=== PATIENT | male | born 1980 | race Caucasian/White ===

== ENCOUNTER 2021-01-01 09:46 | Emergency (ER) | payer BC, SELFPAY ==
--- NOTE | ~2021-01-01 | XR_ITS ---
EXAMINATION: XR CHEST CLINICAL INFORMATION: Chest tightness COMPARISON: 05/09/2020 TECHNIQUE: Frontal view of the chest was obtained. FINDINGS: No significant abnormality is noted involving the heart, lungs, mediastinum, bony thorax or soft tissues. XR/XR chest 1V IMPRESSION: No acute pulmonary disease. No significant change from prior study.
[2021-01-01 10:04] VITALS: BP 162/105; PULSE 80; RESP 16; TEMP 36.8; O2SAT 98
[2021-01-01 10:09] VITALS: BP 162/105; PULSE 80; RESP 16; TEMP 36.8; O2SAT 98; BMI 33.0
--- NOTE | 2021-01-01 10:09 | ECG_ITS ---
Test Reason : CHEST TIGHTNESS Blood Pressure : / mmHG Vent. Rate : 071 BPM Atrial Rate : 071 BPM P-R Int : 158 ms QRS Dur : 100 ms QT Int : 406 ms P-R-T Axes : 025 000 021 degrees QTc Int : 441 ms Normal sinus rhythm Normal ECG When compared with ECG of 30-OCT-2011 22:09, No significant change was found Referred By: Raman De La O Electronically Signed By:Eric Mireles
[2021-01-01 10:36] LABS: MANUAL DIFF FLAG NO
[2021-01-01 10:39] LABS: Basophils Percent Auto 0.5 % (0-2); Eosinophils Percent Auto 0.5 % (0-4); Hemoglobin 14.5 g/dl (14.0-18.0); Imm Gran Abs Auto 0.01 X10*3/uL (0.00-0.03); Imm Gran Pct Auto 0.3 % (0.0-0.4); Lymphocytes Percent Auto 26.9 % (20-40); Mean Corpuscular HGB Conc 35.4 g/dl (31.0-36.0); Mean Corpuscular Hemoglobin 29.4 pg (27.0-33.0); Mean Platelet Volume 10.8 fL (9.4-12.4); Monocytes Absolute Auto 0.3 X10*3/uL (0.1-1.2); Monocytes Percent Auto 8.1 % (2-11); Neutrophils Absolute Auto 2.4 X10*3/uL (2.0-8.3); Neutrophils Percent Auto 63.7 % (45-73); Platelet Count 226 X10*3/uL (160-400); Red Blood Count 4.94 X10*6/uL (4.60-5.80); Red Cell Distribution Width 12.1 % (11.0-16.0); White Blood Count 3.7 X10*3/uL (4.8-10.8)
[2021-01-01 10:51] LABS: INTERNATIONAL NORM RATIO 1.1 (0.9-1.1); Prothrombin Time 12.9 SEC (10.8-13.0)
[2021-01-01 10:54] LABS: Partial Thromboplastin Time 31.3 SEC (24.1-38.0)
[2021-01-01 10:56] LABS: D Dimer < 200 NG/ML
[2021-01-01 11:02] LABS: Alanine Aminotransferase 34 U/L (0-40); Albumin Level 4.2 g/dL (3.5-5.0); Alkaline Phosphatase 76 U/L (39-117); Anion Gap 9 (12-20); Aspartate Amino Transferase 21 U/L (5-37); Bilirubin Total 0.7 mg/dL (0.0-1.0); Blood Urea Nitrogen 12 mg/dL (9-16); Calcium 8.9 mg/dL (8.4-10.2); Carbon Dioxide 29 mmol/L (22-29); Chloride 106 mmol/L (96-108); Creatinine Clr Calc Pharmacy 145.4; Estimated Glomerular Filt Rate > 60; Glucose Random 98 mg/dL (60-115); Potassium 4.3 mmol/L (3.3-5.1); Sodium 140 mmol/L (135-145); Total Protein 7.1 g/dL (6.5-8.0)
[2021-01-01 11:08] LABS: Troponin-I High Sensitivity 6.2 ng/L (<3.5-35.0)
[2021-01-01 13:37] LABS: Troponin-I High Sensitivity 4.6 ng/L (<3.5-35.0)
--- NOTE | 2021-01-01 14:09 | ED_ITS ---
HPI - General Adult General Chief complaint: General Medical <Raman De La O NP - Last Filed: 01/01/21 14:46> Stated complaint: covid + <Raman De La O NP - Last Filed: 01/01/21 14:46> Time Seen by Provider: 01/01/21 10:08 <Raman De La O NP - Last Filed: 01/01/21 14:46> Source: patient <Raman De La O NP - Last Filed: 01/01/21 14:46> Mode of arrival: ambulatory <Raman De La O NP - Last Filed: 01/01/21 14:46> Limitations: no limitations <Raman De La O NP - Last Filed: 01/01/21 14:46> History of Present Illness HPI narrative: States for the past 6 days or so developed flu-like symptoms yesterday his work made him get a COVID-19 test for which she went to Urgent Care and tested positive for COVID-19 and overall he states he is starting to feel better compared to his previous 6 days but today he has slight chest tightness consistent with a feeling of unable take a full deep breath in. He denies any fever, no shortness of breath on exertion. <Raman De La O NP - Last Filed: 01/01/21 14:46> Onset (ago): day(s) <Raman De La O NP - Last Filed: 01/01/21 14:46> Relieving factors: none <Raman De La O NP - Last Filed: 01/01/21 14:46> Exacerbating factors: none <Raman De La O NP - Last Filed: 01/01/21 14:46> Associated symptoms: cough <Raman De La O NP - Last Filed: 01/01/21 14:46> Treatments prior to arrival: none <Raman De La O NP - Last Filed: 01/01/21 14:46> Related Data Home medications: Previous Rx's Medication Instructions Recorded albuterol sulfate 2 puff INHALATION Q4-6H PRN #6.7 g 01/01/21 azithromycin [Zithromax Z-Leland] 250 mg PO DAILY 5 Days #6 tab 01/01/21 benzonatate [Tessalon Perles] 100 mg PO BID PRN #10 cap 01/01/21 prednisone 10 mg tablet 10 mg PO DAILY 6 Days #12 tab 01/01/21 omeprazole 20 mg capsule,delayed 20 mg PO DAILY 30 Days #30 cap 01/06/21 release <Raman De La O NP - Last Filed: 01/01/21 14:46> Allergies/adverse reactions: Allergies Allergy/AdvReac Type Severity Reaction Status Date / Time No Known Allergies Allergy Verified 10/22/20 09:04 <Raman De La O NP - Last Filed: 01/01/21 14:46> Review of Systems Review of Systems: Constitutional: No Weight loss, No Fever, + Chills, No Night Sweats, No Fatigue, No Malaise ENT/Mouth: No Hearing loss, No Ear Pain, + Nasal Congestion, No Sinus Pain, No Hoarseness, No sore throat, No Swallowing Difficulty \Eyes: No Eye Pain, No Swelling, No Redness, No Foreign Body, No Discharge, No Vision Changes Cardiovascular: No SOB, No Dyspnea on Exertion, No Orthopnea, No Edema, No Palpitations Respiratory: + Cough, No Sputum, No Wheezing, No Smoke Exposure, No Dyspnea Gastrointestinal: No Nausea, No Vomiting, No Diarrhea, No Constipation, No abdominal Pain, No Hematochezia, No Melena Genitourinary: No Dysuria, No Urinary Frequency, No Hematuria, No Urinary Incontinence, No Urgency, No Flank Pain, No Urinary Flow Changes, No Hesitancy Musculoskeletal: No joint pain, No Myalgias, No Joint Swelling Skin: No Skin Lesions, No rash Neuro: No Weakness, No Numbness, No Paresthesias, No Loss of Consciousness, No Dizziness, No Headache Psych: No Social Issues Heme/Lymph: No Bruising, No Bleeding,No Lymphadenopathy Endocrine: No Polyuria, No Polydipsia, No Temperature Intolerance <Raman De La O NP - Last Filed: 01/01/21 14:46> Yes all other systems are reviewed and are negative <Raman De La O NP - Last Filed: 01/01/21 14:46> PMF Past Medical History Surgical History: Surgical History History of laparoscopic appendectomy <Raman De La O NP - Last Filed: 01/01/21 14:46> Family History Family History: Family History Father Diabetes Mother Breast cancer Maternal Grandmother No problems noted. Maternal Grandfather No problems noted. Paternal Grandmother Alzheimer's dementia, late onset Diabetes Paternal Grandfather No problems noted. <Raman De La O NP - Last Filed: 01/01/21 14:46> Social History Social History: Social History Alcohol intake: never Smoking Status: Never smoker Tobacco Type: Cigarette Advance Directives: No Advance Directives Information Provided: No <Raman De La O NP - Last Filed: 01/01/21 14:46> Physical Exam Vital Signs: Vital Signs: Last Vital Signs Temp 98.2 F 01/01/21 10:09 Pulse 80 01/01/21 10:09 Resp 16 01/01/21 10:09 BP 162/105 H 01/01/21 10:09 Pulse Ox 98 01/01/21 10:09 Body Mass Index 33.0 Reviewed <Raman De La O NP - Last Filed: 01/01/21 14:46> Vital Signs: Last Vital Signs Temp 98.2 F 01/01/21 10:09 Pulse 80 01/01/21 10:09 Resp 16 01/01/21 10:09 BP 162/105 H 01/01/21 10:09 Pulse Ox 98 01/01/21 10:09 Body Mass Index 33.0 <Mark Blackman MD - Last Filed: 01/07/21 06:53> Const: General: cooperative and healthy appearing; No acute distress or intoxicated appearing <Raman De La O NP - Last Filed: 01/01/21 14:46> Nutritional Appearance: average body habitus <Raman De La O NP - Last Filed: 01/01/21 14:46> Orientation/consciousness: patient oriented x3 <Raman De La O NP - Last Filed: 01/01/21 14:46> HENMT: Head: Yes normal to inspection <Raman De La O NP - Last Filed: 01/01/21 14:46> Ears: hearing grossly normal bilaterally <Raman De La O NP - Last Filed: 01/01/21 14:46> Eyes: General: appearance normal, both eyes and all related structures <Sergio De La O - Last Filed: 01/01/21 14:46> Visual Olm[place]: normal visual olmstead by confrontation <[facility] Jaylyn - Last Filed: 01/01/21 14:46> Neck: Neck: Yes normal visual inspection, No positive Brudzinski's sign, No positive Kernig's sign and No tender <[facility] De La O - Last Filed: 01/01/21 14:46> Thyroid: Thyroid normal [facility] - Last Filed: 01/01/21 14:46> Chest: Chest palpation & inspection: normal inspection of the chest <[facility] De La O - Last Filed: 01/01/21 14:46> Resp: Effort & Inspection: normal respiratory effort <[facility] De La O - Last Filed: 01/01/21 14:46> Auscultation: clear to auscultation bilaterally <[facility] De La O - Last Filed: 01/01/21 14:46> Cardio: Jugular venous distension: no JVD <[facility] De La O - Last Filed: 01/01/21 14:46> Rhythm: regular rhythm <[facility] De La O - Last Filed: 01/01/21 14:46> Heart sounds: S1 normal heart sound present and S2 normal heart sound present <[facility] De La O - Last Filed: 01/01/21 14:46> GI: Inspection: Yes normal to inspection <[facility] De La O - Last Filed: 01/01/21 14:46> Palpation (GI): Soft to palpation <[facility] - Last Filed: 01/01/21 14:46> Percussion: Yes normal to percussion <[facility] - Last Filed: 01/01/21 14:46> Auscultation: normal bowel sounds <[facility] - Last Filed: 01/01/21 14:46> : General: Yes no CVA tenderness <[facility] - Last Filed: 01/01/21 14:46> Back/Spine/Pelvis: Back: no CVA tenderness <[facility] - Last Filed: 01/01/21 14:46> Skin: General skin exam: no rashes or lesions noted <Raman De La O NP - Last Filed: 01/01/21 14:46> Neuro: General: patient oriented x3 <Raman De La O NP - Last Filed: 01/01/21 14:46> Extrem: General: Yes normal to inspection <Raman De La O NP - Last Filed: 01/01/21 14:46> Course Course Course Narrative: I have reviewed the chart <Mark Blackman MD - Last Filed: 01/07/21 06:53> Medical Decision Making MDM Narrative Medical decision making narrative: Positive COVID yesterday with flu-like symptoms for past 6 days 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 Workup were stable. Ambulatory steady with pulse ox 100% on room air. Will discharge home with supportive, return, follow-up instructions. Cdc/state guidelines provided. Verbalized understanding. Feel comfortable plan. Stable for discharge. <Raman De La O NP - Last Filed: 01/01/21 14:46> Lab Data Result diagrams: : 01/01/21 10:26 01/01/21 10:26 <Raman De La O NP - Last Filed: 01/01/21 14:46> Labs: Lab Results 01/01/21 01/01/21 01/01/21 Range/Units 10:26 10:26 10:26 WBC 3.7 L (4.8-10.8) X10*3/uL RBC 4.94 (4.60-5.80) X10*6/uL Hgb 14.5 (14.0-18.0) g/dl Hct 41.0 L (42-52) % MCV 83.0 (80-98) fL MCH 29.4 (27.0-33.0) pg MCHC 35.4 (31.0-36.0) g/dl RDW 12.1 (11.0-16.0) % Plt Count 226 (160-400) X10*3/uL MPV 10.8 (9.4-12.4) fL Immature Gran % (Auto) 0.3 (0.0-0.4) % Neut % (Auto) 63.7 (45-73) % Lymph % (Auto) 26.9 (20-40) % [place] % (Auto) 8.1 (2-11) % Eos % (Auto) 0.5 (0-4) % Baso % (Auto) 0.5 (0-2) % Lymph # (Auto) 1.0 L (1.2-4.9) X10*3/uL [place] # (Auto) 0.3 (0.1-1.2) X10*3/uL Eos # (Auto) 0.0 (0.0-0.4) X10*3/uL Baso # (Auto) 0.0 (0.0-0.2) X10*3/uL Abs Immat Gran (auto) 0.01 (0.00-0.03) X10*3/uL Absolute Neuts (auto) 2.4 (2.0-8.3) X10*3/uL Absolute Nucleated RBC 0.000 (0.0-0.012) X10*3/uL Nucleated RBC % (auto) 0.0 (0.0-0.2) /100WBC PT 12.9 (10.8-13.0) SEC INR 1.1 (0.9-1.1) APTT 31.3 (24.1-38.0) SEC D-Dimer < 200 NG/ML Sodium 140 (135-145) mmol/L Potassium 4.3 (3.3-5.1) mmol/L Chloride 106 (96-108) mmol/L Carbon Dioxide 29 (22-29) mmol/L Anion Gap 9 L (12-20) BUN 12 (9-16) mg/dL Creatinine 0.90 (0.5-1.4) mg/dL Estim Creat Clear Calc 145.4 Estimated GFR > 60 Random Glucose 98 (60-115) mg/dL Calcium 8.9 (8.4-10.2) mg/dL Total Bilirubin 0.7 (0.0-1.0) mg/dL AST 21 (5-37) U/L ALT 34 (0-40) U/L Alkaline Phosphatase 76 (39-117) U/L Troponin I High Sens (<3.5-35.0) ng/L Total Protein 7.1 (6.5-8.0) g/dL Albumin 4.2 (3.5-5.0) g/dL 01/01/21 01/01/21 Range/Units 10:26 13:01 WBC (4.8-10.8) X10*3/uL RBC (4.60-5.80) X10*6/uL Hgb (14.0-18.0) g/dl Hct (42-52) % MCV (80-98) fL MCH (27.0-33.0) pg MCHC (31.0-36.0) g/dl RDW (11.0-16.0) % Plt Count (160-400) X10*3/uL MPV (9.4-12.4) fL Immature Gran % (Auto) (0.0-0.4) % Neut % (Auto) (45-73) % Lymph % (Auto) (20-40) % [place] % (Auto) (2-11) % Eos % (Auto) (0-4) % Baso % (Auto) (0-2) % Lymph # (Auto) (1.2-4.9) X10*3/uL [place] # (Auto) (0.1-1.2) X10*3/uL Eos # (Auto) (0.0-0.4) X10*3/uL Baso # (Auto) (0.0-0.2) X10*3/uL Abs Immat Gran (auto) (0.00-0.03) X10*3/uL Absolute Neuts (auto) (2.0-8.3) X10*3/uL Absolute Nucleated RBC (0.0-0.012) X10*3/uL Nucleated RBC % (auto) (0.0-0.2) /100WBC PT (10.8-13.0) SEC INR (0.9-1.1) APTT (24.1-38.0) SEC D-Dimer NG/ML Sodium (135-145) mmol/L Potassium (3.3-5.1) mmol/L Chloride (96-108) mmol/L Carbon Dioxide (22-29) mmol/L Anion Gap (12-20) BUN (9-16) mg/dL Creatinine (0.5-1.4) mg/dL Estim Creat Clear Calc Estimated GFR Random Glucose (60-115) mg/dL Calcium (8.4-10.2) mg/dL Total Bilirubin (0.0-1.0) mg/dL AST (5-37) U/L ALT (0-40) U/L Alkaline Phosphatase (39-117) U/L Troponin I High Sens 6.2 4.6 (<3.5-35.0) ng/L Total Protein (6.5-8.0) g/dL Albumin (3.5-5.0) g/dL <Raman De La O NP - Last Filed: 01/01/21 14:46> Lab Results 01/01/21 01/01/21 01/01/21 Range/Units 10:26 10:26 10:26 WBC 3.7 L (4.8-10.8) X10*3/uL RBC 4.94 (4.60-5.80) X10*6/uL Hgb 14.5 (14.0-18.0) g/dl Hct 41.0 L (42-52) % MCV 83.0 (80-98) fL MCH 29.4 (27.0-33.0) pg MCHC 35.4 (31.0-36.0) g/dl RDW 12.1 (11.0-16.0) % Plt Count 226 (160-400) X10*3/uL MPV 10.8 (9.4-12.4) fL Immature Gran % (Auto) 0.3 (0.0-0.4) % Neut % (Auto) 63.7 (45-73) % Lymph % (Auto) 26.9 (20-40) % [place] % (Auto) 8.1 (2-11) % Eos % (Auto) 0.5 (0-4) % Baso % (Auto) 0.5 (0-2) % Lymph # (Auto) 1.0 L (1.2-4.9) X10*3/uL [place] # (Auto) 0.3 (0.1-1.2) X10*3/uL Eos # (Auto) 0.0 (0.0-0.4) X10*3/uL Baso # (Auto) 0.0 (0.0-0.2) X10*3/uL Abs Immat Gran (auto) 0.01 (0.00-0.03) X10*3/uL Absolute Neuts (auto) 2.4 (2.0-8.3) X10*3/uL Absolute Nucleated RBC 0.000 (0.0-0.012) X10*3/uL Nucleated RBC % (auto) 0.0 (0.0-0.2) /100WBC PT 12.9 (10.8-13.0) SEC INR 1.1 (0.9-1.1) APTT 31.3 (24.1-38.0) SEC D-Dimer < 200 NG/ML Sodium 140 (135-145) mmol/L Potassium 4.3 (3.3-5.1) mmol/L Chloride 106 (96-108) mmol/L Carbon Dioxide 29 (22-29) mmol/L Anion Gap 9 L (12-20) BUN 12 (9-16) mg/dL Creatinine 0.90 (0.5-1.4) mg/dL Estim Creat Clear Calc 145.4 Estimated GFR > 60 Random Glucose 98 (60-115) mg/dL Calcium 8.9 (8.4-10.2) mg/dL Total Bilirubin 0.7 (0.0-1.0) mg/dL AST 21 (5-37) U/L ALT 34 (0-40) U/L Alkaline Phosphatase 76 (39-117) U/L Troponin I High Sens (<3.5-35.0) ng/L Total Protein 7.1 (6.5-8.0) g/dL Albumin 4.2 (3.5-5.0) g/dL 01/01/21 01/01/21 Range/Units 10:26 13:01 WBC (4.8-10.8) X10*3/uL RBC (4.60-5.80) X10*6/uL Hgb (14.0-18.0) g/dl Hct (42-52) % MCV (80-98) fL MCH (27.0-33.0) pg MCHC (31.0-36.0) g/dl RDW (11.0-16.0) % Plt Count (160-400) X10*3/uL MPV (9.4-12.4) fL Immature Gran % (Auto) (0.0-0.4) % Neut % (Auto) (45-73) % Lymph % (Auto) (20-40) % [place] % (Auto) (2-11) % Eos % (Auto) (0-4) % Baso % (Auto) (0-2) % Lymph # (Auto) (1.2-4.9) X10*3/uL [place] # (Auto) (0.1-1.2) X10*3/uL Eos # (Auto) (0.0-0.4) X10*3/uL Baso # (Auto) (0.0-0.2) X10*3/uL Abs Immat Gran (auto) (0.00-0.03) X10*3/uL Absolute Neuts (auto) (2.0-8.3) X10*3/uL Absolute Nucleated RBC (0.0-0.012) X10*3/uL Nucleated RBC % (auto) (0.0-0.2) /100WBC PT (10.8-13.0) SEC INR (0.9-1.1) APTT (24.1-38.0) SEC D-Dimer NG/ML Sodium (135-145) mmol/L Potassium (3.3-5.1) mmol/L Chloride (96-108) mmol/L Carbon Dioxide (22-29) mmol/L Anion Gap (12-20) BUN (9-16) mg/dL Creatinine (0.5-1.4) mg/dL Estim Creat Clear Calc Estimated GFR Random Glucose (60-115) mg/dL Calcium (8.4-10.2) mg/dL Total Bilirubin (0.0-1.0) mg/dL AST (5-37) U/L ALT (0-40) U/L Alkaline Phosphatase (39-117) U/L Troponin I High Sens 6.2 4.6 (<3.5-35.0) ng/L Total Protein (6.5-8.0) g/dL Albumin (3.5-5.0) g/dL <Mark Blackman MD - Last Filed: 01/07/21 06:53> Discharge Plan Discharge Clinical Impression: COVID-19, Chest pain, atypical <Raman De La O NP - Last Filed: 01/01/21 14:46> Patient Disposition: Home, Self-Care <Raman De La O NP - Last Filed: 01/01/21 14:46> Instructions: COVID-19 (Coronavirus Disease 2019) (ED) <Raman De La O NP - Last Filed: 01/01/21 14:46> Additional Instructions: Drink plenty of fluids Take medication prescribed Supportive care discussed Continue to follow quarantine and isolation precautions Remain out of work for State guidelines for the full 14 days Return if any concerns or worsening symptoms Thank you <Raman De La O NP - Last Filed: 01/01/21 14:46> Prescriptions: New azithromycin [Zithromax Z-Leland] 250 mg tablet 250 mg PO DAILY 5 Days Qty: 6 RF: 0 albuterol sulfate 90 mcg/actuation HFA aerosol inhaler 2 puff inhalation Q4-6H PRN (Reason: shortness of breath or wheezing) Qty: 6.7 RF: 0 benzonatate [Tessalon Perles] 100 mg capsule 100 mg PO BID PRN (Reason: cough) Qty: 10 RF: 0 No Action prednisone 10 mg tablet 10 mg PO DAILY 6 Days Qty: 12 RF: 0 omeprazole 20 mg capsule,delayed release(DR/EC) 20 mg PO DAILY 30 Days Qty: 30 RF: 2 <Raman De La O NP - Last Filed: 01/01/21 14:46> Referrals: Rusty Shirley PA-C [Primary Care Provider] - 1 week (PHONE VISIT) <Raman De La O NP - Last Filed: 01/01/21 14:46> Interventions: ED Discharge Assessment Last Done: 01/01/21 16:49 <Raman De La O NP - Last Filed: 01/01/21 14:46> Discharge Date/Time: 01/01/21 14:49 <Raman De aL O NP - Last Filed: 01/01/21 14:46>
== END 2021-01-01 14:49 | disposition home or self-care (01) ==
PROVIDERS: Nurse Practitioner Primary Care; Emergency Provider Emergency Medicine; PCP Physician Assistant
DX: R07.89 Other chest pain (principal); Z86.16 Personal history of COVID-19
CPT/HCPCS: 36415; 71045; 80053; 84484; 85025; 85379; 85610; 85730; 93005; 99283

== ENCOUNTER 2022-02-25 14:16 | Outpatient (REF) | payer BC, SELFPAY ==
--- NOTE | ~2022-02-25 | XR_ITS ---
EXAMINATION: XR knee LT 3V CLINICAL INFORMATION: Pain COMPARISON: None TECHNIQUE: 4 views of the knee XR/XR knee LT 3V FINDINGS/IMPRESSION: No acute fracture or dislocation. Minimal degenerative changes of the knee with small patellofemoral osteophytes. Knee joint spaces are maintained. No joint effusion. Soft tissues are unremarkable.
== END 2022-02-25 14:17 | disposition home or self-care (01) ==
LOC: HO.XRAY 14:16
PROVIDERS: PCP Physician Assistant; Visit Provider Nurse Practitioner Family
DX: M25.562 Pain in left knee (principal)
CPT/HCPCS: 73562

== ENCOUNTER 2022-04-02 07:50 | Outpatient (REF) | payer BC, SELFPAY ==
--- NOTE | ~2022-04-02 | XR_ITS ---
EXAMINATION: XR knee standing BI CLINICAL INFORMATION: Knee pain COMPARISON: Left knee radiograph 02/25/2022 TECHNIQUE: One standing view of the bilateral knees XR/XR knee standing BI FINDINGS/IMPRESSION: * No acute fracture or dislocation appreciated on this limited single view. * Mild degenerative changes of the knees with borderline loss of medial compartment joint space bilaterally.
== END 2022-04-02 07:51 | disposition home or self-care (01) ==
LOC: HO.HOSX 07:50
PROVIDERS: Visit Provider Physician Assistant
DX: M22.2X1 Patellofemoral disorders, right knee (principal); M22.2X2 Patellofemoral disorders, left knee
CPT/HCPCS: 73565

== ENCOUNTER → 2022-05-07 12:46 | Outpatient (BNVA) | payer BC, SELFPAY | PROVIDERS: PCP Physician Assistant; Visit Provider Physician Assistant | DX: M22.2X9 Patellofemoral disorders, unspecified knee (principal); M76.52 Patellar tendinitis, left knee | CPT/HCPCS: 20610; J1040 ==

== ENCOUNTER 2022-05-12 10:00 | Outpatient (RCR) | payer BC, SELFPAY ==
[2022-04-22 09:53] VITALS: BP 161/97
--- NOTE | 2022-04-22 13:52 | MHC.PT.EP ---
[facility] [place] Office [place] Office [place] Office [address] [phone] F: [phone] F: [phone] F: [phone] F: [phone] Physical Therapy Plan of Care Date of Evaluation: Date of Surgery: N/A Diagnosis: Patellofemoral disorders, unspecified knee Assessment: Pt is a pleasant and motivated 42yo M who presents to PT with L knee pain. Pt presents with current impairments in pain, decreased quad and glute strength, soft tissue restrictions, and decreased muscle length. He is limited functionally by prolonged standing, stair navigation, and sleeping. He is an excellent candidate for skilled PT in order to address current impairments to facilitate return to PLOF. He will be seen 2x/week for 4 weeks and will be reassessed at that time. Frequency and Duration: The patient will be seen 2x/week for 4 weeks Short Term Goals: Pt will be I with HEP to promote self management of symptoms Pt will improve L quad length to WFL [employer] Goals: Pt will tolerate prolonged standing > 2 hours with minimal to no pain to assist with work related tasks Pt will ascend/descend stairs with reciprocal gait pattern with minimal to no pain consistently Pt will return to gym routine with minimal to no pain throughout L knee Treatment Plan: Modalities to reduce pain, spasms and effusion. Manual therapy to restore motion and function. Therapeutic exercise to improve strength and flexibility. Neuromuscular re-education for posture and balance. Therapeutic activities to return to functional activities of daily living. Electronically signed by: Gauri Castillo, PT, DPT Please sign and return to therapist. Thank you for your referral.
--- NOTE | 2022-05-13 16:50 | MHC.PT.DC ---
[facility] [place] Office [place] Office [place] Office [address] [phone] F: [phone] F: [phone] F: [phone] F: [phone] Physical Therapy Discharge Report Diagnosis: Patellofemoral disorders, unspecified knee Date of Surgery: N/A Date of Evaluation: 04/22/22 Date of Discharge: 05/13/22 Treatments to Date: 5 Cancellations to Date: 1 No Shows to Date: Discharge Status: Achieved Goals Improved Function Independent with HEP Discharge Summary: Pt has made excellent progress since SOC. He is extremely motivated and compliant with exercise and activity. He has had an overall decrease in pain throughout L knee. He is improving his quad muscle length to WFL. He has improved standing tolerance, stair navigation, and exercise and is able to perform activities with minimal to no symptoms. Pt is I with HEP. Pt is being D/C from PT. Provided pt with printed, updated copy of HEP and GTB at last attended session on 05/12/22 and pt verbalized understanding. Pt reports no further questions or concerns for PT at time of D/C. Electronically signed by: Gauri Castillo, PT, DPT Please sign and return to therapist. Thank you for your referral.
== END 2022-05-13 16:50 | disposition home or self-care (01) ==
LOC: HO.PT 10:00
PROVIDERS: PCP Physician Assistant; Visit Provider Physician Assistant
DX: M22.2X9 Patellofemoral disorders, unspecified knee (principal)
CPT/HCPCS: 97110; 97161; 97530

== ENCOUNTER 2022-11-17 11:01 | Outpatient (REF) | payer OTHER, SELFPAY ==
--- NOTE | ~2022-11-17 | MR_ITS ---
EXAMINATION: MR KNEE WITHOUT CONTRAST, LEFT CLINICAL INFORMATION: Left knee pain, buckling. Injury in October 2021. COMPARISON: Left knee radiographs dated 04/02/2022 and 02/25/2022. TECHNIQUE: MRI of the knee without contrast was performed using routine sequences on a high-field scanner. FINDINGS: MENISCI: Medial Meniscus: Oblique inner margin radial tear of the posterior horn. Lateral Meniscus: Intact LIGAMENTS: Cruciate: Intact Collateral: Intact EXTENSOR MECHANISM: Intact quadriceps tendon. Thickening of the proximal patellar tendon consistent with tendinosis. There is linear intrasubstance fluid signal centrally measuring up to 1.8 cm in craniocaudal dimension, consistent with intrasubstance partial tearing. No full-thickness transverse tendon tear or tendon retraction. ARTICULAR CARTILAGE/BONE: Patellofemoral Compartment: Diffuse patellar articular cartilage signal heterogeneity and surface irregularly with full-thickness fissuring at the patellar median ridge where there is mild subchondral cystic change. Central trochlear signal heterogeneity. Tiny marginal osteophytes. Medial Compartment: Mild articular cartilage signal heterogeneity. Posterior medial tibial plateau full-thickness loss with mild subchondral cystic change. Tiny marginal osteophytes. Lateral Compartment: Intact articular cartilage. JOINT FLUID AND BURSAE: Trace Galvan's cyst. Lobulated fluid lateral to the Gavlan's cyst and measuring up to 5.8 cm in craniocaudal dimension is consistent with a synovial recess versus ganglion cyst. Mild adjacent soft tissue edema. MR/MR knee LT wo con IMPRESSION: 1. Oblique inner margin radial tear of the medial meniscus posterior horn. 2. Proximal patellar tendinosis with linear intrasubstance partial tearing measuring up to 1.8 cm in craniocaudal dimension. No full-thickness transverse tendon tear or tendon retraction. 3. Mild patellofemoral and medial compartment osteoarthritis. Trace Galvan's cyst. Synovial recess versus ganglion cyst lateral to the Galvan's cyst measuring up to 5.8 cm with mild adjacent soft tissue edema.
[2022-11-17 08:55] LABS: Hematocrit 41.2 % (42.0-52.0); Hemoglobin 14.3 g/dl (14.0-18.0); Mean Corpuscular HGB Conc 34.7 g/dl (31.0-36.0); Mean Corpuscular Hemoglobin 29.2 pg (27.0-33.0); Mean Corpuscular Volume 84.1 fL (80.0-98.0); Mean Platelet Volume 10.9 fL (9.4-12.4); Platelet Count 261 X10*3/uL (160-400); Red Cell Distribution Width 12.3 % (11.0-16.0)
[2022-11-17 09:25] LABS: Alanine Aminotransferase 26 U/L (0-40); Albumin Level 4.3 g/dL (3.5-5.0); Alkaline Phosphatase 74 U/L (39-117); Anion Gap 10 (12-20); Aspartate Amino Transferase 20 U/L (5-37); Bilirubin Total 0.6 mg/dL (0.0-1.0); Blood Urea Nitrogen 10 mg/dL (9-16); Calcium 9.4 mg/dL (8.4-10.2); Carbon Dioxide 31 mmol/L (22-29); Chloride 105 mmol/L (96-108); Cholesterol 151 mg/dL; Estimated Glomerular Filt Rate > 60; Glucose Fasting 100 mg/dL (60-99); HDL Cholesterol 37 mg/dL; Iron 85 mcg/dL (45-160); LDL Cholesterol Calculated 102 mg/dl; Percent Iron Saturation 28 % (15-50); Potassium 4.4 mmol/L (3.3-5.1); Sodium 142 mmol/L (135-145); Total Iron Binding Capacity 305 mcg/dL (228-428); Total Protein 7.2 g/dL (6.5-8.0); Triglycerides 62 mg/dL; Unsaturated Iron Binding 220 ug/dL
[2022-11-17 09:41] LABS: TSH reflex Free T4 0.51 uIU/mL (0.32-4.0)
[2022-11-17 12:35] LABS: Creatinine Urine 331.15 mg/dL; Microalbum/Creatinine Ratio Ur 7.2 ug/mg cr
== END 2022-11-17 11:02 | disposition home or self-care (01) ==
LOC: HO.MRI 11:01
PROVIDERS: PCP Physician Assistant; Visit Provider Physician Assistant
DX: S83.207D Unspecified tear of unspecified meniscus, current injury, left knee, subsequent encounter (principal); I10 Essential (primary) hypertension; D50.9 Iron deficiency anemia, unspecified
CPT/HCPCS: 36415; 73721; 80053; 80061; 82043; 83540; 84443; 85027

== ENCOUNTER → 2022-12-19 09:55 | Outpatient (BNVA) | payer OTHER, SELFPAY | PROVIDERS: PCP Physician Assistant; Visit Provider Physician Assistant | DX: Z13.89 Encounter for screening for other disorder (principal) ==

== ENCOUNTER → 2023-01-20 10:24 | Outpatient (BNVA) | payer SELFPAY | PROVIDERS: PCP Physician Assistant; Visit Provider Physician Assistant Medical | DX: Z02.79 Encounter for issue of other medical certificate (principal) ==

== ENCOUNTER 2023-04-11 06:06 | Emergency (ER) | payer OTHER, SELFPAY ==
[2023-04-11 06:15] VITALS: BP 148/92; PULSE 76; RESP 14; TEMP 36.9; O2SAT 98; BMI 35.0
[2023-04-11 06:18] VITALS: BP 148/92; PULSE 76; RESP 14; TEMP 36.9; O2SAT 98
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
[2023-04-11 07:24] LABS: MANUAL DIFF FLAG NO
[2023-04-11 07:27] LABS: Basophils Percent Auto 0.6 % (0-2); Eosinophils Absolute Auto 0.1 X10*3/uL (0.0-0.4); Eosinophils Percent Auto 1.3 % (0-4); Hematocrit 38.4 % (42.0-52.0); Hemoglobin 13.3 g/dl (14.0-18.0); Imm Gran Abs Auto 0.01 X10*3/uL (0.00-0.03); Imm Gran Pct Auto 0.2 % (0.0-0.4); Lymphocytes Absolute Auto 1.3 X10*3/uL (1.2-4.9); Lymphocytes Percent Auto 25.7 % (20-40); Mean Corpuscular HGB Conc 34.6 g/dl (31.0-36.0); Mean Corpuscular Hemoglobin 29.6 pg (27.0-33.0); Mean Corpuscular Volume 85.5 fL (80.0-98.0); Monocytes Absolute Auto 0.5 X10*3/uL (0.1-1.2); Neutrophils Absolute Auto 3.3 x10*3/uL (2.0-8.3); Neutrophils Percent Auto 63.2 % (45-73); Platelet Count 256 X10*3/uL (160-400); Red Blood Count 4.49 X10*6/uL (4.60-5.80); Red Cell Distribution Width 12.4 % (11.0-16.0); White Blood Count 5.2 X10*3/uL (4.8-10.8)
[2023-04-11] MEDS: Diphth,Pertus(ACell),Tet Adult 0.5 ML SYRINGE IM (07:50)
[2023-04-11 07:52] LABS: Alanine Aminotransferase 55 U/L (0-40); Albumin Level 4.4 g/dL (3.5-5.0); Alkaline Phosphatase 68 U/L (39-117); Aspartate Amino Transferase 32 U/L (5-37); Bilirubin Direct 0.2 mg/dL (0.0-0.5); Bilirubin Total 0.6 mg/dL (0.0-1.0); Lipase 27 U/L (8-78); Total Protein 7.4 g/dL (6.5-8.0)
[2023-04-11] MEDS: Post Exposure Medication Kit 1 KIT PO (08:10)
[2023-04-11 08:24] LABS: Anion Gap 14 (12-20); Blood Urea Nitrogen 16 mg/dL (9-16); Calcium 9.9 mg/dL (8.4-10.2); Carbon Dioxide 25 mmol/L (22-29); Chloride 106 mmol/L (96-108); Creatinine Clr Calc Pharmacy 151.7; Estimated Glomerular Filt Rate > 60; Glucose Random 102 mg/dL (60-115); Potassium 4.4 mmol/L (3.3-5.1); Sodium 141 mmol/L (135-145)
[2023-04-11 08:36] VITALS: BP 154/91; PULSE 74; RESP 16; TEMP 37; O2SAT 98
[2023-04-13 08:26] LABS: HBS Num1 9.61 mIU/mL (0-7.99); HBc Num1 0.19 S/CO (0.00-0.79); HBsAGNum1 0.31 S/CO (0.00-0.99); Hepatitis B Core Antibody Nonreactive (Nonreactive); Hepatitis B Surface Antigen Negative (Negative); ~HepC Num1 0.71 S/CO (0.00-0.79); ~Hepatitis C Antibody Nonreactive (Nonreactive)
[2023-04-13 09:21] LABS: HIV AB/AG Nonreactive (Nonreactive); HIV Num 1 0.07 S/CO (0.00-0.99)
[2023-04-13 10:10] LABS: HBS Num2 9.35 mIU/mL (0-7.99); ~Hepatitis B Surface Antibody GRAYZONE (Nonreactive)
== END 2023-04-11 08:42 | disposition home or self-care (01) ==
PROVIDERS: Physician Assistant; Emergency Provider Internal Medicine; PCP Physician Assistant
DX: S40.811A Abrasion of right upper arm, initial encounter (principal); W50.4XXA Accidental scratch by another person, initial encounter; Z77.21 Contact with and (suspected) exposure to potentially hazardous body fluids; Y93.F9 Activity, other caregiving; Y92.239 Unspecified place in hospital as the place of occurrence of the external cause; Y99.0 Civilian activity done for income or pay
CPT/HCPCS: 36415; 80048; 80076; 83690; 85025; 86704; 86706; 86803; 87340; 87389; 90471; 90715; 99284

== ENCOUNTER → 2023-04-14 14:10 | Outpatient (BNVA) | payer OTHER, SELFPAY | PROVIDERS: PCP Physician Assistant; Visit Provider Internal Medicine | DX: Z77.21 Contact with and (suspected) exposure to potentially hazardous body fluids (principal) | CPT/HCPCS: 99203 ==

== ENCOUNTER → 2023-04-28 09:12 | Outpatient (BNVA) | payer OTHER, SELFPAY | PROVIDERS: PCP Physician Assistant; Visit Provider Internal Medicine | DX: Z77.21 Contact with and (suspected) exposure to potentially hazardous body fluids (principal) | CPT/HCPCS: 99213 ==

== ENCOUNTER 2023-09-18 07:32 | Outpatient (REF) | payer OTHER, SELFPAY ==
[2023-09-18 08:10] LABS: Hematocrit 40.9 % (42.0-52.0); Hemoglobin 13.8 g/dl (14.0-18.0); Mean Corpuscular HGB Conc 33.7 g/dl (31.0-36.0); Mean Corpuscular Hemoglobin 29.3 pg (27.0-33.0); Mean Corpuscular Volume 86.8 fL (80.0-98.0); Mean Platelet Volume 11.2 fL (9.4-12.4); Platelet Count 259 X10*3/uL (160-400); Red Blood Count 4.71 X10*6/uL (4.60-5.80); Red Cell Distribution Width 12.4 % (11.0-16.0); White Blood Count 5.4 X10*3/uL (4.8-10.8)
[2023-09-18 08:36] LABS: Alanine Aminotransferase 27 U/L (0-40); Albumin Level 4.2 g/dL (3.5-5.0); Alkaline Phosphatase 67 U/L (39-117); Anion Gap 9 (12-20); Aspartate Amino Transferase 21 U/L (5-37); Bilirubin Total 0.4 mg/dL (0.0-1.0); Blood Urea Nitrogen 15 mg/dL (9-16); Calcium 9.5 mg/dL (8.4-10.2); Carbon Dioxide 31 mmol/L (22-29); Chloride 105 mmol/L (96-108); Estimated Glomerular Filt Rate > 60; Glucose Fasting 99 mg/dL (60-99); Iron 83 mcg/dL (45-160); Percent Iron Saturation 28 % (15-50); Potassium 3.7 mmol/L (3.3-5.1); Sodium 141 mmol/L (135-145); Total Iron Binding Capacity 295 mcg/dL (228-428); Total Protein 7.3 g/dL (6.5-8.0); Unsaturated Iron Binding 212 ug/dL
[2023-09-23 20:04] LABS: Testosterone, Free 67.6 pg/mL (35.0-155.0); Testosterone, Total 276 ng/dL (250-1100)
== END 2023-09-18 07:33 | disposition home or self-care (01) ==
LOC: HO.LAB 07:32
PROVIDERS: PCP Physician Assistant; Visit Provider Physician Assistant
DX: D50.9 Iron deficiency anemia, unspecified (principal); R68.82 Decreased libido; I10 Essential (primary) hypertension
CPT/HCPCS: 36415; 80053; 83540; 84402; 84403; 85027

== ENCOUNTER 2023-11-04 20:05 | Emergency (ER) | payer OTHER, SELFPAY ==
[2023-11-04 20:14] VITALS: BP 121/58; PULSE 84; RESP 16; TEMP 36.3; O2SAT 98; BMI 35.0
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
== END 2023-11-04 20:37 | disposition home or self-care (01) ==
PROVIDERS: Emergency Provider Student in an Organized Health Care Education/Training Program
DX: S61.431A Puncture wound without foreign body of right hand, initial encounter (principal); Y28.9XXA Contact with unspecified sharp object, undetermined intent, initial encounter; Y93.9 Activity, unspecified; Y92.9 Unspecified place or not applicable; Y99.0 Civilian activity done for income or pay
CPT/HCPCS: 99282

== ENCOUNTER 2024-01-23 08:27 | Emergency (ER) | payer OTHER, SELFPAY ==
[2024-01-23 08:51] VITALS: BP 147/88; PULSE 72; RESP 16; TEMP 36.6; O2SAT 98; BMI 35.0
--- NOTE | 2024-01-23 09:07 | ED_ITS ---
HPI - Wound/Laceration General Chief Complaint: Wound/Laceration Stated Complaint: RT hand lac Time Seen by Provider: 01/23/24 09:05 Source: patient and family Mode of arrival: ambulatory Limitations: no limitations History of Present Illness HPI narrative: 43 yo male with history of HTN, right hand dominant here with complaints of dog bite to right hand from his own dog. Dog had a seizure and with waking was agitated and confused biting his right hand. Dog is UTD with rabies vaccine. Patient is UTD with tetanus. No associated weakness, numbness or tingling of the extremity. Related Data Previous Rx's Medication Instructions Recorded blood pressure test kit-large #1 ea 08/27/22 omeprazole 20 mg capsule,delayed 20 mg PO DAILY 30 days #30 caps 02/02/23 release losartan 50 mg-hydrochlorothiazide 1 tab PO DAILY 90 days #90 tabs 09/22/23 12.5 mg tablet amoxicillin 875 mg-potassium 1 tab PO BID #14 tabs 01/23/24 clavulanate 125 mg tablet Allergies Allergy/AdvReac Type Severity Reaction Status Date / Time lisinopril AdvReac Intermediate coug Verified 11/04/23 20:14 Review of Systems 2 Review of Systems: Yes all other systems are reviewed and are negative Constitutional: Constitutional: Reports no additional constitutional complaints, Denies body ache(s), Denies chills, Denies fever(s), Denies headache(s) and Denies weakness Eyes: Eyes: Reports no additional eye complaints and Denies change in vision ENT: Reports system reviewed and no additional complaints, except as documented, Denies dizziness, Denies headache(s), Denies nasal congestion, Denies nasal discharge and Denies neck pain Cardiovascular: Cardiovascular: Reports no additional cardiovascular complaints, Denies chest pain, Denies leg edema and Denies dyspnea Respiratory: Respiratory: Reports no additional respiratory complaints, Denies cough and Denies dyspnea Gastrointestinal: Gastrointestinal: Reports no additional gastrointestinal complaints, Denies abdominal pain, Denies diarrhea, Denies nausea and Denies vomiting Genitourinary: Genitourinary: Denies urinary incontinence Musculoskeletal: Musculoskeletal: Reports no additional musculoskeletal complaints, Denies back pain, Denies arthralgias, Denies joint swelling, Denies neck pain, Denies numbness and Denies tingling Integumentary/Breasts: Skin/Breast: Reports system reviewed and no additional complaints, except as docu, Denies rash and Reports wounds Neurologic: Reports system reviewed and no additional complaints, except as documented, Denies Abnormal speech present, Denies dizziness, Denies headache(s), Denies numbness, Denies tingling and Denies weakness PMFSH Past Medical History Attestation statement: The following information was validated with the patient. Source: old records reviewed and nursing notes reviewed Medical History Acute meniscal tear of left knee Patellar tendonitis of left knee COVID-19 Surgical History History of laparoscopic appendectomy Family History Family History Father Diabetes Mother Breast cancer Maternal Grandmother No problems noted. Maternal Grandfather No problems noted. Paternal Grandmother Alzheimer's dementia, late onset Diabetes Paternal Grandfather No problems noted. 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 Current occupational exposures/hazards: Yes Cognitive needs: No Hearing needs: No Vision needs: Yes Physical Exam 2 Vital Signs: Vital Signs: Last Vital Signs Temp 98 F 01/23/24 08:51 Pulse 72 01/23/24 08:51 Resp 16 01/23/24 08:51 BP 147/88 H 01/23/24 08:51 Pulse Ox 98 01/23/24 08:51 O2 Del Method Room Air 01/23/24 08:51 BMI result Body Mass Index 35.0 Const: General: cooperative, healthy appearing, comfortable and no acute distress Orientation/consciousness: patient oriented x3 Limitations: no limitations HEENT: Head: Yes normal to inspection Ears: hearing grossly normal bilaterally General nose exam: Normal external nose present Face and sinus: Yes normal facial exam Mouth: Normal oral and palatal mucosa present Throat: Yes posterior oropharynx normal Eyes: General: appearance normal, both eyes and all related structures P upils: Equal, round and reactive pupils present Neck: Neck: Yes normal visual inspection Chest: Chest palpation & inspection: normal inspection of the chest Resp: Effort & Inspection: normal respiratory effort Auscultation: clear to auscultation bilaterally Cardio: Rate: regular rate Rhythm: regular rhythm Peripheral pulses: P eripheral pulses 2+ throughout GI: Inspection: Yes normal to inspection Palpation (GI): Soft to palpation and nontender Auscultation: normal bowel sounds Back/Spine/Pelvis: Thoracic/Lumbar Spine: thoracic and lumbar spine normal to inspection Skin: General skin exam: no rashes or lesions noted Neuro: General: patient oriented x3, no focal motor deficits and normal sensation to monofilament Cranial nerves: Yes Equal, round and reactive pupils present Cognition (Neuro): normal cognition Speech: No Abnormal speech present Gait exam (Neuro): Normal gait present Motor exam (neuro): 5/5 motor strength present throughout Extrem: Other: FROM of the right hand and wrist CMS intact Bleeding controlled General: Yes normal to inspection Hand/finger images: 1. 1cm laceration Medications Administered Discontinued Medications Generic Name Dose Route Start Last Admin Trade Name Freq PRN Reason Stop Dose Admin Bacitracin 1 appl 01/23/24 09:15 01/23/24 09:20 Bacitracin Oint 0.9 Gm Packet TOPICAL 01/23/24 09:16 1 appl ONCE ONE Administration Protocol Medical Decision Making Medical Decision Making MDM Narrative: 43 yo male with history of HTN, right hand dominant here with complaints of dog bite to right hand from his own dog. Dog had a seizure and with waking was agitated and confused biting his right hand. Dog is UTD with rabies vaccine. Patient is UTD with tetanus. No associated weakness, numbness or tingling of the extremity. See PE exam Wound was irrigated with 1L NS Bacitracin and bandage applied Will place patient on pptx antibiotics Differential Diagnosis Differential Diagnoses: The differential diagnosis associated with the presentation includes laceration low suspicion for fracture, tendon injury, retained FB Admission/Observation Consideration of admission/observation: Escalation of care including admission/observation considered low suspicion for fracture, tendon injury, retained FB requiring orthopedic consultation urgently Independent Historian Clinical information obtained from an independent historian. History obtained from or confirmed by: Spouse Tests considered The following testing was considered but not selected: low suspicion for fracture, tendon injury, retained FB requiring xray Prescription Management I considered prescription management with: Antibiotic Discharge Plan Discharge Clinical Impression: Dog bite Patient Disposition: Home, Self-Care Instructions: Animal Bite (ED) Additional Instructions: Take the antibiotics as prescribed Return for redness, drainage, fever or other signs of infection Prescriptions: New amoxicillin-pot clavulanate 875-125 mg tablet 1 tab PO BID Qty: 14 0RF No Action omeprazole 20 mg capsule,delayed release(DR/EC) 20 mg PO DAILY 30 Days Qty: 30 2RF losartan-hydrochlorothiazide 50-12.5 mg tablet 1 tab PO DAILY 90 Days Qty: 90 1RF (DME) blood pressure test kit-large Kit See Rx Instructions .Route Qty: 1 0RF Rx Instructions: As directed Referrals: PhysicianJessie J [Primary Care Provider] - 1 week Interventions: ED Discharge Assessment Last Done: 01/23/24 10:41 Discharge Date/Time: 01/23/24 10:42
[2024-01-23] MEDS: Bacitracin Oint 0.9 GM PACKET 1 APPL TOPICAL (09:20)
== END 2024-01-23 10:42 | disposition home or self-care (01) ==
PROVIDERS: Emergency Provider Student in an Organized Health Care Education/Training Program
DX: S61.451A Open bite of right hand, initial encounter (principal); S61.452A Open bite of left hand, initial encounter; W54.0XXA Bitten by dog, initial encounter; Y93.89 Activity, other specified; Y92.9 Unspecified place or not applicable; Y99.9 Unspecified external cause status; I10 Essential (primary) hypertension
CPT/HCPCS: 99283

== ENCOUNTER 2024-02-18 13:26 | Outpatient (AMB) | payer OTHER, SELFPAY ==
--- NOTE | 2024-02-18 13:27 | A.OFFPC_ITS ---
Vital Signs 02/18/24 13:28 Height 6 ft 3 in Weight 300 lb 4 oz BMI 37.5 BP 110/70 Blood Pressure Location Lt brachial Position Sitting Respiration 16 Pulse 86 Pulse Source Pulse Oximeter Pulse Oximetry (%) 98 Oxygen Delivery Method Room Air Intake Visit Reasons: Physical Exam Intake Note: Patient is here today for a physical. 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 Accompanied by: Self / Same As Patient Allergies lisinopril Adverse Reaction (Intermediate, Verified 02/18/24 13:44) coug Medication List - Last Reconciled 02/18/24 by Rusty Shirley PA-C blood pressure test kit-large As directed losartan-hydrochlorothiazide 50-12.5 mg 1 tab PO DAILY 90 days omeprazole 20 mg PO DAILY 30 days Tobacco use date assessed: 02/18/24 Dental Screening Dental Screen Date: 02/18/24 Did you have a dental visit in the last 12 months?: Yes Did you have a dental problem in the last 6 months where you did not have access to dental care?: No Was dental information given to patient?: Patient has dentist HPI Physical Exam HPI Details Patient is a 43-year-old male here today for a routine annual physical.? Patient has a past medical history significant for hypertension, obesity. Concern--> continues to have a hard time losing weight. He reports going to the gym and running 4-5 times per week. Testosterone level normal. Will check his thyroid.. Also reports having daily fatigue, often having to take a nap in the middle of the afternoon. Does report when he was about 335 lb he did have issues with? Obstructive sleep apnea hand snoring at night. .. Hypertension: Patient's blood pressure acceptable today in office.? He denies any symptoms of headache, chest discomfort palpitations. Have noted weight gain since last office visit though he reports he is going to the gym nearly every day and doing heavy. .. Left knee meniscal tear: Has meniscal tear left knee, continues to have some instability though has been manageable. No further painless he does strenuous physical activity. Does use NSAID from time to time .. GERD: Does use PPI therapy on a p.r.n. basis with good effect on reducing his GERD symptoms. Vaccines: Up-to-date with tetanus vaccine, COVID vaccine Laboratory Tests 09/18/23 07:44 Hgb 13.8 L Total Testosterone 276 PFSH Medical History Acute meniscal tear of left knee Patellar tendonitis of left knee COVID-19 Surgical History History of laparoscopic appendectomy Family History Father Diabetes Mother Breast cancer Maternal Grandmother No problems noted. Maternal Grandfather No problems noted. Paternal Grandmother Alzheimer's dementia, late onset Diabetes Paternal Grandfather No problems noted. 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 1. Little interest or pleasure in doing things: not at all 2. Feeling down, depressed, or hopeless: not at all 3. Trouble falling or staying asleep, or sleeping too much: not at all 4. Feeling tired or having little energy: not at all 5. Poor appetite or overeating: not at all 6. Feeling bad about yourself - or that you are a failure or have let yourself or your family down: not at all 7. Trouble concentrating on things, such as reading the newspaper or watching television: not at all 8. Moving or speaking so slowly that other people could have noticed. Or the opposite - being so fidgety or restless that you have been moving around a lot more than usual: not at all 9. Thoughts that you would be better off or of hurting yourself in some way: not at all Total score: 0 Depression Screening Interpretation: Negative Depression Screening Done: Yes 50756 - PHQ-9 Billing: Yes Source: Developed by Drs. Domingo Sanabria, Say Fisher and colleagues, with an educational miguel from [employer]. Thrive Questionnaire Date Thrive assessed: 02/18/24 I am a: Patient What is your living situation today?: I have a steady place to live Within the past 12 months, did the food you bought not last and you didn't have the money to get more?: Never true Within the past 12 months, did you worry whether your food would run out before you got money to buy more?: Never true Do you have trouble paying for medicines?: No Do you have trouble getting transportation to medical appointments?: No Do you have trouble paying your heating and electricity bill?: No Do you have trouble taking care of your child, family member or friend?: No Do you have trouble with day-to-day activities such as bathing, preparing meals, shopping, managing finances, etc.?: No Are you currently unemployed and looking for a job?: No Are you interested in more education?: No Please select the resources that you would like help with: None Currently or been in a relationship where the following occur: no concerns reported THRIVE Score: 0 AUDIT C Alcohol Use Questionnaire (AUDIT-C) 1. How often do you have a drink containing alcohol?: Monthly or less 2. How many drinks containing alcohol do you have on a typical day when you are drinking?: 1 or 2 3. How often do you have six or more drinks on one occasion?: Never Total Score: 1 JAMAL-7 AMB Questionnaire JAMAL-7 Date JAMAL - 7 assessed: 02/18/24 Feeling nervous, anxious, or on edge: 0 = Not at all Not being able to stop or control worryin = Not at all Worrying too much about different things: 0 = Not at all Trouble relaxin = Not at all Being so restless that it is hard to sit still: 0 = Not at all Becoming easily annoyed or irritable: 0 = Not at all Feeling afraid as if something awful might happen: 0 = Not at all Total JAMAL-7 score (0-4 normal; 5-9 mild; 10-14 moderate; 15-21 severe): 0 Source: Developed by Lesli River Kurt Kroenke and colleagues, with an educational miguel from [employer]. JAMAL-7 Assessment Billing JAMAL-7 Assessment Tool: JAMAL-7 Assessment 72369 Review of Systems Const Denies body aches, Denies chills, Denies excessive sweating, Denies fatigue, Denies fever(s) and Denies headache(s) Eyes Denies blurry vision ENT Denies dysphagia, Denies vertigo, Denies dizziness, Denies headache(s), Denies hearing loss and Denies tinnitus Card Denies chest pain, Denies chest pain with activity, Denies syncope, Denies irregular heart rhythm and Denies dyspnea Resp Denies chest congestion, Denies cough, Denies hemoptysis, Denies dyspnea and Denies wheezing GI Denies abdominal pain, Denies melena, Denies hematochezia, Denies coffee ground emesis, Denies dysphagia, Denies diarrhea, Denies nausea and Denies vomiting Denies difficulty urinating, Denies dysuria, Denies urinary frequency, Denies urinary hesitancy and Denies urinary urgency Musc Denies arthralgias, Denies limited range of motion, Denies muscle cramps and Denies muscle weakness Skin/Breast Denies rash and Denies skin ulcer Neuro Denies Abnormal speech present, Denies confusion, Denies vertigo, Denies dizziness, Denies syncope, Denies headache(s), Denies memory loss and Denies seizure-like activity Psych Denies anxiety, Denies confusion, Denies depression, Denies memory loss, Denies panic attacks and Denies paranoia Endo Denies excessive sweating, Denies fatigue, Denies flushing, Denies polydipsia and Denies polyuria Aller/Immun Denies wheezing Physical exam (Primary Care) Vital Signs: Last Vital Signs Pulse 86 02/18/24 13:28 Resp 16 02/18/24 13:28 BP 110/70 02/18/24 13:28 Pulse Ox 98 02/18/24 13:28 Oxygen Delivery Method Room Air 02/18/24 13:28 BMI result Body Mass Index 37.5 BMI Assessment/Plan discussion: High Tobacco/Smoking Status: Tobacco use Status Tobacco use date assessed 02/18/24 02/18/24 13:28 Patient Tobacco Use Status Never used Tobacco 02/18/24 13:28 e-Cigarette/Vaping Use Never Used 02/18/24 13:28 PHQ-9: PHQ-9 Score PHQ-9: Total score 0 02/18/24 13:33 Depression Screening Interpretation: Negative Thrive Assessment: Date of Thrive Assessment Date Thrive assessed 02/18/24 02/18/24 13:33 Currently or been in a relationship where the following occur: no concerns reported Const Other: Obese General: cooperative, comfortable, no acute distress, alert and awake; No confusion Orientation/consciousness: oriented to person, oriented to place, patient oriented x3 and No confusion HENMT Head: Yes normocephalic Ears: external ears normal and TM's normal bilaterally Face and sinus: No sinus tenderness Mouth: Normal oral and palatal mucosa present and tongue normal Teeth and gingiva: dentition normal and gingiva normal Throat: Yes posterior oropharynx normal, Yes tonsils normal and Yes uvula midline Eyes Conjunctivae: conjunctivae normal Sclerae: sclerae normal Pupils: Equal, round and reactive pupils present EOM: EOMs intact bilaterally Direct Ophthalmoscopy: No no photophobia Neck Neck: Yes no lymphadenopathy, No tender and Yes no JVD Thyroid: Thyroid normal Carotids: no bruits Chest Chest palpation & inspection: no tenderness Resp Effort & Inspection: normal respiratory effort, no audible wheezes, not labored and no stridor Auscultation: no crackles, no rales, no rhonchi and no wheezes Cardio Jugular venous distension: no JVD Rate: regular rate, not bradycardic and not tachycardic Rhythm: regular rhythm Bruits: no carotid bruits Peripheral pulses: Peripheral pulses 2+ throughout GI Inspection: Yes normal to inspection, No abdominal wall ecchymosis and No visible herniation Palpation (GI): Soft to palpation, nontender, no guarding, not rigid and No hepatosplenomegaly present Auscultation: normoactive bowel sounds General: Yes no CVA tenderness Back/Spine/Pelvis Back: no CVA tenderness and No back tenderness Cervical Spine: cervical ROM normal Thoracic/Lumbar Spine: thoracic and lumbar spine normal to inspection, straight leg raise negative bilaterally, No thoraco-lumbar ROM limited and No lumbar spinal tenderness Skin Lesions: no lesions Rashes: no rashes Wounds: no wounds Neuro General: oriented to person, oriented to place, patient oriented x3, CN's II-XI intact bilaterally and No confusion Cranial nerves: Yes Equal, round and reactive pupils present and Yes Normal accommodation reflex present Cognition (Neuro): normal cognition Speech: No Abnormal speech present Gait exam (Neuro): Normal gait present Motor exam (neuro): 5/5 motor strength present throughout Extrem Right upper extremity: full ROM; no cyanosis Left upper extremity: full ROM; no cyanosis Right lower extremity: no edema Left lower extremity: no edema Psych Appearance: grossly normal Mental Status: mental status grossly normal Affect: normal affect Attitude: cooperative Thought process: Normal thought process present Assessment and Plan Assessment & Plan (1) Annual physical exam: Code(s): Z00.00 - Encounter for general adult medical examination without abnormal findings (2) HTN (hypertension): Code(s): I10 - Essential (primary) hypertension Qualifiers: Hypertension type: primary hypertension Qualified Code(s): I10 - Essential (primary) hypertension Plan: Blood pressure acceptable today in office. Will continue his current dose of losartan hydrochlorothiazide with goal blood pressure to be below 140/90 (3) Obese: Code(s): E66.9 - Obesity, unspecified Qualifiers: Body mass index: BMI 39.0-39.9 Obesity classification: adult class 2 ( BMI 35 - 39.9) Obesity type: due to excess calories Serious obesity comorbidity presence: without serious comorbidity Qualified Code(s): E66.09 - Other obesity due to excess calories; Z68.39 - Body mass index [BMI] 39.0-39.9, adult Plan: Patient does understand his BMI is over 30 will work on being more physically active and adapting to better eating habits to reduce his weight. He has struggled losing weight . Test is his testosterone which was low normal. (4) Iron deficiency anemia: Code(s): D50.9 - Iron deficiency anemia, unspecified Qualifiers: Iron deficiency anemia type: unspecified iron deficiency Qualified Code(s): D50.9 - Iron deficiency anemia, unspecified Plan: Continues to have slight anemia, does use [id number] iron supplementation. Will continue to follow CBC and iron studies. (5) Fatigue: Code(s): R53.83 - Other fatigue Qualifiers: Fatigue type: chronic, unspecified Qualified Code(s): R53.82 - Chronic fatigue, unspecified Plan: He reports he continues to fatigue. Will send for sleep study to evaluate for obstructive sleep apnea. Will send for thyroid studies as well. If workup unrevealing- will Consider changing his blood pressure medication as it may be causing him side effect of fatigue. (6) KEN (obstructive sleep apnea): Code(s): G47.33 - Obstructive sleep apnea (adult) (pediatric) Plan: STOP BANG- questionnaire- moderate- high risk for obstructive sleep apnea Orders: Orders Microalbumin, Random (w Creat) Today I10 - Essential (primary) hypertension RT home sleep study Today G47.33 - Obstructive sleep apnea (adult) (pediatric) Comprehensive [place]. Panel Fast Today I10 - Essential (primary) hypertension Complete Blood Count no Diff Today D50.9 - Iron deficiency anemia, unspecified IRON PROFILE Today D50.9 - Iron deficiency anemia, unspecified TSH reflex Free T4 Today R53.82 - Chronic fatigue, unspecified Medications: Refilled omeprazole 20 mg PO DAILY 30 days 30 caps 2RF K21.9 - Gastro-esophageal reflux disease without esophagitis Coding Level of Care Code Est Pt Prev Care 40-64y(70048) Diagnoses Annual physical exam Z00.00 Primary hypertension I10 Hypertension type: primary hypertension Class 2 obesity due to excess calories without serious comorbidity with body mass index (BMI) of 39.0 to 39.9 in adult E66.09; Z68.39 Body mass index: BMI 39.0-39.9 Obesity classification: adult class 2 (BMI 35 - 39.9) Obesity type: due to excess calories Serious obesity comorbidity presence: without serious comorbidity Iron deficiency anemia, unspecified iron deficiency anemia type D50.9 Iron deficiency anemia type: unspecified iron deficiency Chronic fatigue R53.82 Fatigue type: chronic, unspecified KEN (obstructive sleep apnea) G47.33 Additional Codes JAMAL-7 Assessment Billing - JAMAL-7 Assessment Tool: JAMAL-7 Assessment 03640 ([id number])
[2024-02-18 13:28] VITALS: BP 110/70; PULSE 86; RESP 16; O2SAT 98; BMI 37.5
== END 2024-02-18 13:54 | disposition home or self-care (01) ==
PROVIDERS: PCP Physician Assistant; Visit Provider Physician Assistant
DX: Z00.00 Encounter for general adult medical examination without abnormal findings (principal); I10 Essential (primary) hypertension; E66.09 Other obesity due to excess calories; Z68.39 Body mass index [BMI] 39.0-39.9, adult; D50.9 Iron deficiency anemia, unspecified; R53.82 Chronic fatigue, unspecified; G47.33 Obstructive sleep apnea (adult) (pediatric)
CPT/HCPCS: 99396

== ENCOUNTER 2024-02-25 23:34 | Emergency (ER) | payer OTHER, SELFPAY ==
--- NOTE | ~2024-02-25 | XR_ITS ---
EXAMINATION: XR HAND, RIGHT CLINICAL INFORMATION: Puncture wound. COMPARISON: None available. TECHNIQUE: PA, lateral, and oblique views of the right hand. FINDINGS: The bone mineralization is normal. No fracture. Alignment is anatomic. Joint spaces are maintained. There is subcutaneous emphysema most prominent between the second and third metacarpophalangeal joints. No erosions or soft tissue calcifications. XR/XR hand RT min 3V IMPRESSION: Subcutaneous emphysema between the second and third metacarpophalangeal joints. No radiopaque foreign body is seen. No acute osseous abnormality.
[2024-02-25 23:36] VITALS: BP 145/92; PULSE 69; RESP 18; TEMP 36.6; O2SAT 97; BMI 35.0
--- NOTE | 2024-02-26 00:56 | ED.GENADULT ---
HPI - General Adult General Chief complaint: Wound/Laceration Stated complaint: work inj Time Seen by Provider: 02/26/24 00:34 Source: patient, RN notes reviewed and old records reviewed Mode of arrival: ambulatory Limitations: no limitations History of Present Illness HPI narrative: 43-year-old male presents for evaluation of a puncture wound. 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 He states that he flung his right hand back while he was talking and ?a metal antenna went right through the hand. ? The patient states that he saw the metal go right through the back of his hand and poked through the front of the hand He states that he was able to remove the metal piece out of his hand quickly He states that he has no pain He reports his tetanus is up-to-date He states ?I am just looking for antibiotics to make sure it does not get infected. Related Data Previous Rx's ?Medication ?Instructions ?Recorded blood pressure test kit-large #1 ea 08/27/22 losartan 50 mg-hydrochlorothiazide 1 tab PO DAILY 90 days #90 tabs 09/22/23 12.5 mg tablet omeprazole 20 mg capsule,delayed 20 mg PO DAILY 30 days #30 caps 02/18/24 release cephalexin 500 mg capsule 500 mg PO QID #28 caps 02/26/24 Allergies Allergy/AdvReac Type Severity Reaction Status Date / Time lisinopril AdvReac Intermediate coug Verified 02/25/24 23:37 Review of Systems Constitutional: Constitutional: Denies body ache(s), Denies chills and Denies fever(s) Eyes: Eyes: Denies blurry vision ENT: Denies sore throat Cardiovascular: Cardiovascular: Denies chest pain and Denies dyspnea Respiratory: Respiratory: Denies cough and Denies dyspnea Gastrointestinal: Gastrointestinal: Denies abdominal pain, Denies nausea and Denies vomiting Musculoskeletal: Musculoskeletal: Denies arthralgias, Denies joint swelling and Denies limited range of motion Integumentary/Breasts: Skin/Breast: Denies erythema, Denies rash and Reports wounds PMFSH Past Medical History Medical History Acute meniscal tear of left knee Patellar tendonitis of left knee COVID-19 Surgical History History of laparoscopic appendectomy Family History Family History Father Diabetes Mother Breast cancer Maternal Grandmother No problems noted. Maternal Grandfather No problems noted. Paternal Grandmother Alzheimer's dementia, late onset Diabetes Paternal Grandfather No problems noted. 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 Current occupational exposures/hazards: Yes Cognitive needs: No Hearing needs: No Vision needs: Yes Physical Exam ED Vital Signs: Vital Signs - 24 hr 02/25/24 23:36 Temperature 97.8 F Pulse Rate 69 Respiratory Rate 18 Blood Pressure 145/92 H Pulse Oximetry 97 Oxygen Delivery Method Room Air BMI result Body Mass Index 35.0 Const General: healthy appearing, comfortable, no acute distress, alert and awake Nutritional Appearance: well nourished Orientation/consciousness: patient oriented x3 HENMT Head: Yes normocephalic and Yes atraumatic Resp Effort & Inspection: normal respiratory effort, able to speak in complete sentences and not labored Skin General skin exam: elasticity normal Neuro General: patient oriented x3 Cranial nerves: Yes Bilaterally intact EOM present Cognition (Neuro): normal cognition Extrem Other: Patient has a puncture wound to the right hand. There appears to be in entry wound on the dorsal surface of the right hand in between the right 3rd and 4th MCP joints. The puncture wound is in the web spacing of this area. There appears to be an exit wound on the ventral surface in between the web spacing of the 3rd and 4th MCP joints. The patient has full range of motion with flexion-extension of all fingers of the right hand. There is no surrounding erythema or edema Medications Administered Discontinued Medications Generic Name Dose Route Start Last Admin Trade Name Freq PRN Reason Stop Dose Admin Cephalexin HCl 500 mg 02/26/24 00:54 02/26/24 01:02 Cephalexin 500 Mg Capsule PO 02/26/24 00:55 500 mg ONCE ONE Administration Medical Decision Making Medical Decision Making [facility] Narrative: Patient appears to have a puncture wound that went cleaned through his right hand. It appears to be isolated to the web spacing of the finger and I have a low suspicion for any vascular, ligamentous or osseous injury. Will get an x-ray to evaluate for retained foreign body but I also feel this is less likely. There is no palpable foreign body on exam, the patient has full range of motion. The patient's tetanus is up-to-date, we will discharge the patient with cephalexin Differential Diagnosis Differential Diagnoses: The differential diagnosis associated with the presentation includes Puncture wound Tetanus exposure Right hand pain Fracture Foreign body Independent Interpretation I performed an independent interpretation of an: Plain X-Ray (No obvious metallic foreign body, no osseous injury) Discharge Plan Discharge Clinical Impression: Puncture wound of hand, right Patient Disposition: Home, Self-Care Instructions: Puncture Wound (ED) Additional Instructions: Your x-ray does not show any obvious foreign body or fracture Take cephalexin 4 times daily for the next 7 days Return to the ER if you notice any redness, swelling, decreased range of motion or especially if you develop a fever Follow-up with your primary doctor Prescriptions: New cephalexin 500 mg capsule 500 mg PO QID Qty: 28 0RF No Action losartan-hydrochlorothiazide 50-12.5 mg tablet 1 tab PO DAILY 90 Days Qty: 90 1RF (DME) blood pressure test kit-large Kit See Rx Instructions .Route Qty: 1 0RF Rx Instructions: As directed omeprazole 20 mg capsule,delayed release(DR/EC) 20 mg PO DAILY 30 Days Qty: 30 2RF Print Language: Citizen [place]
[2024-02-26] MEDS: cephALEXin 500 MG CAPSULE PO (01:02)
[2024-02-26 01:05] VITALS: BP 145/92; PULSE 69; RESP 18; TEMP 36.6; O2SAT 97
== END 2024-02-26 01:06 | disposition home or self-care (01) ==
PROVIDERS: Emergency Provider Internal Medicine; PCP Physician Assistant
DX: S61.431A Puncture wound without foreign body of right hand, initial encounter (principal); M79.641 Pain in right hand; W26.9XXA Contact with unspecified sharp object(s), initial encounter; Y93.9 Activity, unspecified; Y92.9 Unspecified place or not applicable; Y99.0 Civilian activity done for income or pay
CPT/HCPCS: 73130; 99283; 99284

== ENCOUNTER → 2024-02-26 07:50 | Outpatient (BNVA) | payer OTHER, SELFPAY | PROVIDERS: PCP Physician Assistant; Visit Provider Internal Medicine | DX: S61.431A Puncture wound without foreign body of right hand, initial encounter (principal); W45.8XXA Other foreign body or object entering through skin, initial encounter | CPT/HCPCS: 99202 ==

== ENCOUNTER → 2024-03-10 10:04 | Outpatient (BNVA) | payer OTHER, SELFPAY | PROVIDERS: PCP Physician Assistant; Visit Provider Physician Assistant Medical | DX: Z02.79 Encounter for issue of other medical certificate (principal) ==

== ENCOUNTER → 2024-03-23 08:54 | Outpatient (REF) | payer OTHER, SELFPAY | LOC: HO.SL 08:54 | PROVIDERS: PCP Physician Assistant; Visit Provider Physician Assistant | DX: G47.33 Obstructive sleep apnea (adult) (pediatric) (principal) | CPT/HCPCS: 95806 ==

== ENCOUNTER → 2024-03-23 09:13 | Outpatient (BNV) | payer OTHER, SELFPAY | PROVIDERS: PCP Physician Assistant; Visit Provider Internal Medicine | DX: R06.83 Snoring (principal) | CPT/HCPCS: 95806 ==

== ENCOUNTER 2024-06-16 23:34 | Emergency (ER) | payer OTHER, SELFPAY ==
[2024-06-16 23:52] VITALS: BP 131/93; PULSE 87; RESP 18; TEMP 36.4; O2SAT 97; BMI 35.6
--- NOTE | 2024-06-17 00:30 | ED_ITS ---
HPI - Back Pain/Injury General Chief Complaint: Back Pain/Injury Stated Complaint: work inj Time Seen by Provider: 06/17/24 00:20 Source: patient Mode of arrival: ambulatory Limitations: no limitations History of Present Illness ED Provider: Dr. Helene Leon HPI Narrative: Patient comes to the emergency room complaining of lower back pain. 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 According to the patient, since he head injury, patient has not had any numbness tingling in lower extr emities, no urinary/fecal incontinence/retention. Patient has localized pain, nonradiating. Related Data Previous Rx's ?Medication ?Instructions ?Recorded blood pressure test kit-large #1 ea 08/27/22 cephalexin 500 mg capsule 500 mg PO QID #28 caps 02/26/24 losartan 50 mg-hydrochlorothiazide 1 tab PO DAILY 90 days #90 tabs 03/21/24 12.5 mg tablet omeprazole 20 mg capsule,delayed 20 mg PO DAILY 30 days #30 caps 05/23/24 release cyclobenzaprine 10 mg tablet 10 mg PO TID PRN muscle spasm #10 06/17/24 tabs ketorolac 10 mg tablet 10 mg PO Q8H PRN pain #10 tabs 06/17/24 Allergies Allergy/AdvReac Type Severity Reaction Status Date / Time lisinopril AdvReac Intermediate coug Verified 06/16/24 23:53 Review of Systems Review of Systems: Constitutional : No Weight loss, No Fever, No Chills, No Night Sweats, No Fatigue, No Malaise ENT/Mouth : No Hearing loss, No Ear Pain, No Nasal Congestion, No Sinus Pain, No Hoarseness, No sore throat, No Rhinorrhea, No Swallowing Difficulty Eyes: No Eye Pain, No Swelling, No Redness, No Foreign Body, No Discharge, No Vision Changes Cardiovascular : No Chest Pain, No SOB, No Dyspnea on Exertion, No Orthopnea, No Edema, No Palpitations Respiratory : No Cough, No Sputum, No Wheezing, No Smoke Exposure, No Dyspnea Gastrointestinal : No Nausea, No Vomiting, No Diarrhea, No Constipation, No abdominal Pain, No Hematochezia, No Melena Genitourinary : no irregular bleeding, No Dysuria, No Urinary Frequency, No Hematuria, No Urinary Incontinence, No Urgency, No Flank Pain, No Urinary Flow Changes, No Hesitancy Musculoskeletal complaining of lower back pain, No Myalgias, No Joint Swelling Skin : No Skin Lesions, No rash Neuro : No Weakness, No Numbness, No Paresthesias, No Loss of Consciousness, No Dizziness, No Headache Psych : No Anxiety/Panic, No Depression, No SI/HI/AH/VH, No Social Issues, Heme/Lymph: No Bruising, No Bleeding,No Lymphadenopathy Endocrine : No Polyuria, No Polydipsia, No Temperature Intolerance [facility] Past Medical History Medical History Acute meniscal tear of left knee Patellar tendonitis of left knee COVID-19 Surgical History History of laparoscopic appendectomy Family History Family History Father Diabetes Mother Breast cancer Maternal Grandmother No problems noted. Maternal Grandfather No problems noted. Paternal Grandmother Alzheimer's dementia, late onset Diabetes Paternal Grandfather No problems noted. 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 Oriented X3. No acute distress. Eyes: Pupils equal, round and reactive to light. ENT: Pharynx normal. Neck: Normal inspection. Neck supple. No lymph nodes noted. No crepitus CVS: Normal heart rate and rhythm. Pulses normal. Normal S1 and S2 Respiratory: No respiratory distress. Breath sounds normal. No Wheezing. No rales Abdomen: Soft and nontender. No rigidity. No distention. Back: Pain to palpation over bilateral paraspinal muscles, no thoracic or lumbar spine tenderness or palpable step-offs Skin: Skin warm and dry. Normal skin color. Normal skin turgor. Extremities: No lower extremity edema. No Lacerations. No Rash Neuro: Oriented X 3. No motor deficit. No sensory deficit. Moving all extremities. No slurred speech. CN 2 through 12 grossly intact Psych: calm, cooperative, normal affect Medical Decision Making Medical Decision Making MDM Narrative: I discussed the physical exam with the patient. At this time, x-rays are not indicated. Patient has reproducible pain to palpation over the paraspinal muscles. -patient was given IM Toradol and cyclobenzaprine p.o. Patient agrees with plan Differential Diagnosis Differential Diagnoses: The differential diagnosis associated with the presentation includes Discharge Plan Discharge Clinical Impression: Strain of lumbar paraspinal muscle Patient Disposition: Home, Self-Care Instructions: Muscle Strain (ED), Acute Low Back Pain (ED) Additional Instructions: Please follow-up with your primary care physician tomorrow. If you have any worsening or new symptoms, please return to the emergency room or call 911 Prescriptions: New ketorolac 10 mg tablet 10 mg PO Q8H PRN (Reason: pain) Qty: 10 0RF Rx Instructions: Not use this medication with NSAIDs, only Tylenol if needed cyclobenzaprine 10 mg tablet 10 mg PO TID PRN (Reason: muscle spasm) Qty: 10 0RF No Action losartan-hydrochlorothiazide 50-12.5 mg tablet 1 tab PO DAILY 90 Days Qty: 90 1RF omeprazole 20 mg capsule,delayed release(DR/EC) 20 mg PO DAILY 30 Days Qty: 30 2RF cephalexin 500 mg capsule 500 mg PO QID Qty: 28 0RF (DME) blood pressure test kit-large Kit See Rx Instructions .Route Qty: 1 0RF Rx Instructions: As directed Referrals: Ovidio Stokes MD [Physician] - 06/20/24 Stand Alone Forms: Work/School Release Print Language: German
[2024-06-17] MEDS: Cyclobenzaprine HCl 10 MG TABLET PO (00:57)
[2024-06-17] MEDS: Ketorolac Tromethamine 60 MG/2 ML VIAL IM (00:59)
[2024-06-17 01:12] VITALS: BP 131/93; PULSE 87; RESP 18; TEMP 36.4; O2SAT 97
== END 2024-06-17 01:13 | disposition home or self-care (01) ==
PROVIDERS: Emergency Provider Emergency Medicine; PCP Physician Assistant
DX: S39.012A Strain of muscle, fascia and tendon of lower back, initial encounter (principal); Y35.811A Legal intervention involving manhandling, law enforcement official injured, initial encounter; Y93.89 Activity, other specified; Y92.410 Unspecified street and highway as the place of occurrence of the external cause; Y99.9 Unspecified external cause status
CPT/HCPCS: 96372; 99284; J1885

== ENCOUNTER → 2024-06-20 09:01 | Outpatient (BNVA) | payer OTHER, SELFPAY | PROVIDERS: PCP Physician Assistant; Visit Provider Physician Assistant Medical | DX: Z09 Encounter for follow-up examination after completed treatment for conditions other than malignant neoplasm (principal); S39.012A Strain of muscle, fascia and tendon of lower back, initial encounter; X50.0XXA Overexertion from strenuous movement or load, initial encounter | CPT/HCPCS: 99202 ==

== ENCOUNTER 2024-09-12 09:55 | Outpatient (AMB) | payer OTHER, SELFPAY ==
[2024-09-12 10:01] VITALS: BP 122/86; PULSE 70; O2SAT 97; BMI 37.6
--- NOTE | 2024-09-12 10:01 | MHC.PC.OV ---
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 Patient has a past medical history significant for hypertension, obesity. Concern--> continues to have a hard time losing weight. He reports going to the gym and running 4-5 times per week. Testosterone level normal. He reports his diet has been improved. He is interested in starting Wegovy to help kick start weight loss. .. Hypertension: Patient's blood pressure acceptable today in office.? He denies any symptoms of headache, chest discomfort palpitations. Have noted weight gain since last office visit though he reports he is going to the gym nearly every day and doing heavy. [facility] Medical History Acute meniscal tear of left knee Patellar tendonitis of left knee COVID-19 Surgical History History of laparoscopic appendectomy Family History Father Diabetes Mother Breast cancer Maternal Grandmother No problems noted. Maternal Grandfather No problems noted. Paternal Grandmother Alzheimer's dementia, late onset Diabetes Paternal Grandfather No problems noted. 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 How many drinks containing alcohol do you have on a typical day when you are drinking?: 1 or 2 3. How often do you have six or more drinks on one occasion?: Never Total Score: 0 JAMAL-7 AMB Questionnaire JAMAL-7 Date JAMAL - 7 assessed: 02/18/24 Source: Developed by Drs. Domingo Sanabria, Lesli Grossman, Say Gunn and colleagues, with an educational miguel from [employer]. Review of Systems Const Denies headache(s) Eyes Denies loss of vision ENT Denies vertigo, Denies dizziness, Denies headache(s) and Denies sore throat Card Denies chest pain, Denies leg edema and Denies lightheadedness Resp Denies cough, Denies hemoptysis and Denies wheezing GI Denies abdominal pain, Denies melena, Denies constipation, Denies diarrhea and Denies vomiting Denies dysuria, Denies urinary frequency and Denies urinary urgency Musc Denies arthralgias, Denies joint swelling, Denies numbness and Denies tingling Neuro Denies Abnormal speech present, Denies behavioral changes, Denies vertigo, Denies dizziness, Denies headache(s), Denies loss of vision, Denies memory loss, Denies numbness and Denies tingling Psych Denies anxiety, Denies behavioral changes, Denies depression, Denies memory loss and Denies panic attacks Juanito/Lymph Denies easy bleeding and Denies easy bruising Aller/Immun Denies wheezing Physical exam (Primary Care) Vital Signs: Last Vital Signs Pulse 70 09/12/24 10:01 BP 122/86 09/12/24 10:01 Pulse Ox 97 09/12/24 10:01 Oxygen Delivery Method Room Air 09/12/24 10:01 BMI result Body Mass Index 37.6 Tobacco/Smoking Status: Tobacco use Status Tobacco use date assessed 02/18/24 09/12/24 10:06 Patient Tobacco Use Status Never used Tobacco 09/12/24 10:06 e-Cigarette/Vaping Use Never Used 09/12/24 10:06 Thrive Assessment: Date of Thrive Assessment Date Thrive assessed 02/18/24 09/12/24 10:06 Const General: healthy appearing, no acute distress, alert and awake Nutritional Appearance: well nourished Orientation/consciousness: oriented to person, oriented to place and oriented to time HENMT Ears: TM's normal bilaterally General nose exam: Normal nasal mucous membranes and turbinates present Eyes Conjunctivae: conjunctivae normal Sclerae: sclerae normal Pupils: Equal, round and reactive pupils present Neck Neck: Yes no lymphadenopathy and Yes no JVD Thyroid: Thyroid normal Carotids: no bruits Resp Effort & Inspection: normal respiratory effort and not tachypneic Auscultation: no crackles, no rales, no rhonchi and no wheezes Cardio Rate: regular rate Rhythm: regular rhythm Heart sounds: no murmurs and normal S1 and S2 GI Palpation (GI): Soft to palpation, nontender, no hepatomegaly and no splenomegaly Auscultation: normal bowel sounds Skin General skin exam: no rashes or lesions noted and dry skin Neuro General: oriented to person, oriented to place and oriented to time Cranial nerves: Yes Equal, round and reactive pupils present Speech: No Abnormal speech present Gait exam (Neuro): Normal gait present Motor exam (neuro): no tremor noted Extrem Right upper extremity: full ROM Left upper extremity: full ROM Right lower extremity: full ROM; no edema Left lower extremity: full ROM; no edema Psych Mental Status: mental status grossly normal Speech and movement: Normal speech and movement present Affect: normal affect Attitude: cooperative Thought process: Normal thought process present Office Procedures Flu Questionnaire Does the patient have a severe egg allergy?: No Immunizations Fluarix Triv [id number] (PF) 45 mcg (15 mcg x 3)/0.5 mL IM syringe Performing Provider: Rusty Shirley PA-C [facility] Documented (not given) by: MINNIE Duarte on 09/12/24 10:07 Reason Not Given: Patient Refused Coding Level of Care Code Est Pt Level 3 (95810) Diagnoses Class 2 obesity E66.812 Primary hypertension I10 Hypertension type: primary hypertension Assessment & Plan Assessment & Plan (1) Class 2 obesity: Code(s): E66.812 - Obesity, class 2 Category: Medical Plan: Patient does understand his BMI is over 35. Has been going to the gym several times a week and has adapted to better eating habits though has failed to lose much weight. He is interested in using a GLP 1 to help him with weight loss. He does have obesity related comorbidities including hypertension and obstructive sleep apnea that can improve with weight reduction. (2) HTN (hypertension): Code(s): I10 - Essential (primary) hypertension Category: Medical Qualifiers: Hypertension type: primary hypertension Qualified Code(s): I10 - Essential (primary) hypertension Plan: Patient's blood pressure acceptable today in office. Will continue him on his current dose of antihypertensive medication with goal blood pressure to be below 140/90 Orders: Orders Influenza [id number] Immunization Today Z23 - Encounter for immunization Medications: New semaglutide (weight loss) (Wegovy) administer weeks 1 through 4 of therapy 0.25 mg (0.5 mL) subcut QWEEK 4 weeks 2 mL 0RF E66.812 - Obesity, class 2, G47.33 - Obstructive sleep apnea (adult) (pediatric), I10 - Essential (primary) hypertension Discontinued ketorolac Not use this medication with NSAIDs, only Tylenol if needed Discontinued Reason: Doctor's Order 10 mg PO Q8H PRN 10 tabs 0RF pain Patient Instructions: Goal: Blood pressure to be below 140/90 Barrier: Adherence to physical activity and healthy eating habits
== END 2024-09-12 10:26 | disposition home or self-care (01) ==
PROVIDERS: PCP Physician Assistant; Visit Provider Physician Assistant
DX: I10 Essential (primary) hypertension (principal); E66.812 Obesity, class 2; Z68.37 Body mass index [BMI] 37.0-37.9, adult

== ENCOUNTER → 2024-09-12 09:55 | Outpatient (BNVA) | payer OTHER, SELFPAY | PROVIDERS: PCP Physician Assistant; Visit Provider Physician Assistant | DX: I10 Essential (primary) hypertension (principal); E66.812 Obesity, class 2; Z68.37 Body mass index [BMI] 37.0-37.9, adult; Z79.899 Other long term (current) drug therapy; Z28.21 Immunization not carried out because of patient refusal | CPT/HCPCS: 90471 ==

== ENCOUNTER 2025-06-15 14:25 | Outpatient (AMB) | payer OTHER, SELFPAY ==
[2025-06-15 14:41] VITALS: BP 110/60; PULSE 76; RESP 18; TEMP 36.2; O2SAT 96; BMI 37.1
--- NOTE | 2025-06-15 14:41 | MHC.PC.OV ---
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: No Accompanied by: Self / Same As Patient Allergies lisinopril Adverse Reaction (Intermediate, Verified 06/15/25 14:50) coug Medication List - Last Reconciled 06/15/25 by Rusty Shirley PA-C blood pressure test kit-large As directed losartan-hydrochlorothiazide 50-12.5 mg 1 tab PO DAILY 90 days omeprazole 20 mg PO DAILY Tobacco use date assessed: 06/15/25 Dental Screening Dental Screen Date: 06/15/25 Did you have a dental visit in the last 12 months?: Yes Did you have a dental problem in the last 6 months where you did not have access to dental care?: No Was dental information given to patient?: Patient has dentist HPI annual exam HPI Details Patient is a 45-year-old male here today for an annual physical? Patient has a past medical history significant for hypertension, obesity. Class 2 obesity :continues to have a hard time losing weight. He reports going to the gym and running 4-5 times per week. Testosterone level normal. He reports his diet has been improved. .. Hypertension: Patient's blood pressure acceptable today in office.? He denies any symptoms of headache, chest discomfort palpitations. Have noted weight gain since last office visit though he reports he is going to the gym nearly every day and doing heavy lifting. Vaccines: Up-to-date with tetanus vaccine, COVID vaccine, decline flu vac [facility] Medical History Acute meniscal tear of left knee Patellar tendonitis of left knee COVID-19 Surgical History History of laparoscopic appendectomy Family History (Updated 06/15/25 @ 14:53 by Rusty Shirley PA-C) Father Diabetes Mother Breast cancer HTN (hypertension) Maternal Grandmother No problems noted. Maternal Grandfather No problems noted. Paternal Grandmother Alzheimer's dementia, late onset Diabetes Paternal Grandfather No problems noted. 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 1. Little interest or pleasure in doing things: not at all 2. Feeling down, depressed, or hopeless: not at all 3. Trouble falling or staying asleep, or sleeping too much: not at all 4. Feeling tired or having little energy: not at all 5. Poor appetite or overeating: not at all 6. Feeling bad about yourself - or that you are a failure or have let yourself or your family down: not at all 7. Trouble concentrating on things, such as reading the newspaper or watching television: not at all 8. Moving or speaking so slowly that other people could have noticed. Or the opposite - being so fidgety or restless that you have been moving around a lot more than usual: not at all 9. Thoughts that you would be better off or of hurting yourself in some way: not at all Total score: 0 Depression Screening Interpretation: Negative Depression Screening Done: Yes 73429 - PHQ-9 Billing: Yes Source: Developed by Drs. Domingo Sanabria, Lesli Grossman, Say Gunn and colleagues, with an educational miguel from '[employer]. Thrive Questionnaire Date Thrive assessed: 06/15/25 I am a: Patient What is your living situation today?: I have a steady place to live Within the past 12 months, did the food you bought not last and you didn't have the money to get more?: I choose not to answer this question Within the past 12 months, did you worry whether your food would run out before you got money to buy more?: I choose not to answer this question Do you have trouble paying for medicines?: No Do you have trouble getting transportation to medical appointments?: No Do you have trouble paying your heating and electricity bill?: No Do you have trouble taking care of your child, family member or friend?: No Do you have trouble with day-to-day activities such as bathing, preparing meals, shopping, managing finances, etc.?: No Are you currently unemployed and looking for a job?: Yes Are you interested in more education?: Yes Please select the resources that you would like help with: None Currently or been in a relationship where the following occur: No concerns reported THRIVE Score: 0 AUDIT C Alcohol Use Questionnaire (AUDIT-C) 1. How often do you have a drink containing alcohol?: Monthly or less 2. How many drinks containing alcohol do you have on a typical day when you are drinking?: 1 or 2 3. How often do you have six or more drinks on one occasion?: Less than monthly Total Score: 2 JAMAL-7 AMB Questionnaire JAMAL-7 Date JAMAL - 7 assessed: 06/15/25 Feeling nervous, anxious, or on edge: 0 = Not at all Not being able to stop or control worryin = Not at all Worrying too much about different things: 0 = Not at all Trouble relaxin = Not at all Being so restless that it is hard to sit still: 0 = Not at all Becoming easily annoyed or irritable: 0 = Not at all Feeling afraid as if something awful might happen: 0 = Not at all Total JAMAL-7 score (0-4 normal; 5-9 mild; 10-14 moderate; 15-21 severe): 0 Source: Developed by Drs. Domingo Sanabria, Lesli Grossman, Say Gunn and colleagues, with an educational miguel from '[employer]. JAMAL-7 Assessment Billing JAMAL-7 Assessment Tool: JAMAL-7 Assessment 43359 Review of Systems Const Denies body aches, Denies chills, Denies excessive sweating, Denies fatigue, Denies fever(s) and Denies headache(s) Eyes Denies blurry vision ENT Denies dysphagia, Denies vertigo, Denies dizziness, Denies headache(s), Denies hearing loss and Denies tinnitus Card Denies chest pain, Denies chest pain with activity, Denies syncope, Denies irregular heart rhythm and Denies dyspnea Resp Denies chest congestion, Denies cough, Denies hemoptysis, Denies dyspnea and Denies wheezing GI Denies abdominal pain, Denies melena, Denies hematochezia, Denies coffee ground emesis, Denies dysphagia, Denies diarrhea, Denies nausea and Denies vomiting Denies difficulty urinating, Denies dysuria, Denies urinary frequency, Denies urinary hesitancy and Denies urinary urgency Musc Denies arthralgias, Denies limited range of motion, Denies muscle cramps and Denies muscle weakness Skin/Breast Denies rash and Denies skin ulcer Neuro Denies Abnormal speech present, Denies confusion, Denies vertigo, Denies dizziness, Denies syncope, Denies headache(s), Denies memory loss and Denies seizure-like activity Psych Denies anxiety, Denies confusion, Denies depression, Denies memory loss, Denies panic attacks and Denies paranoia Endo Denies excessive sweating, Denies fatigue, Denies flushing, Denies polydipsia and Denies polyuria Aller/Immun Denies wheezing Physical exam (Primary Care) Vital Signs: Last Vital Signs Temp 97.1 F 06/15/25 14:41 Resp 18 06/15/25 14:41 Oxygen Delivery Method Room Air 06/15/25 14:41 BMI result Body Mass Index 37.1 BMI Assessment/Plan discussion: High BMI High, discussed plan: lifestyle, weight reduction, dietary and physical activity Tobacco/Smoking Status: Tobacco use Status Tobacco use date assessed 06/15/25 06/15/25 14:42 Patient Tobacco Use Status Never used Tobacco 06/15/25 14:42 e-Cigarette/Vaping Use Never Used 06/15/25 14:42 PHQ-9: PHQ-9 Score PHQ-9: Total score 0 06/15/25 14:42 Depression Screening Interpretation: Negative Thrive Assessment: Date of Thrive Assessment Date Thrive assessed 06/15/25 06/15/25 14:42 Currently or been in a relationship where the following occur: No concerns reported Const General: cooperative, comfortable, no acute distress, alert and awake; No confusion Orientation/consciousness: oriented to person, oriented to place, patient oriented x3 and No confusion HENMT Head: Yes normocephalic Ears: external ears normal and TM's normal bilaterally Face and sinus: No sinus tenderness Mouth: Normal oral and palatal mucosa present and tongue normal Teeth and gingiva: dentition normal and gingiva normal Throat: Yes posterior oropharynx normal, Yes tonsils normal and Yes uvula midline Eyes Conjunctivae: conjunctivae normal Sclerae: sclerae normal Pupils: Equal, round and reactive pupils present EOM: EOMs intact bilaterally Direct Ophthalmoscopy: No no photophobia Neck Neck: Yes no lymphadenopathy, No tender and Yes no JVD Thyroid: Thyroid normal Carotids: no bruits Chest Chest palpation & inspection: no tenderness Resp Effort & Inspection: normal respiratory effort, no audible wheezes, not labored and no stridor Auscultation: no crackles, no rales, no rhonchi and no wheezes Cardio Jugular venous distension: no JVD Rate: regular rate, not bradycardic and not tachycardic Rhythm: regular rhythm Bruits: no carotid bruits Peripheral pulses: Peripheral pulses 2+ throughout GI Inspection: Yes normal to inspection, No abdominal wall ecchymosis and No visible herniation Palpation (GI): Soft to palpation, nontender, no guarding, not rigid and No hepatosplenomegaly present Auscultation: normoactive bowel sounds General: Yes no CVA tenderness Back/Spine/Pelvis Back: no CVA tenderness and No back tenderness Cervical Spine: cervical ROM normal Thoracic/Lumbar Spine: thoracic and lumbar spine normal to inspection, straight leg raise negative bilaterally, No thoraco-lumbar ROM limited and No lumbar spinal tenderness Skin Lesions: no lesions Rashes: no rashes Wounds: no wounds Neuro General: oriented to person, oriented to place, patient oriented x3, CN's II-XI intact bilaterally and No confusion Cranial nerves: Yes Equal, round and reactive pupils present and Yes Normal accommodation reflex present Cognition (Neuro): normal cognition Speech: No Abnormal speech present Gait exam (Neuro): Normal gait present Motor exam (neuro): 5/5 motor strength present throughout Extrem Right upper extremity: full ROM; no cyanosis Left upper extremity: full ROM; no cyanosis Right lower extremity: no edema Left lower extremity: no edema Psych Appearance: grossly normal Mental Status: mental status grossly normal Affect: normal affect Attitude: cooperative Thought process: Normal thought process present Coding Level of Care Code Est Pt Prev Care 40-64y(21326) Diagnoses Annual physical exam Z00.00 Class 2 obesity E66.812 Primary hypertension I10 Hypertension type: primary hypertension Additional Codes PHQ-9 - 01259 - PHQ-9 Billing: Yes ([id number]) JAMAL-7 Assessment Billing - JAMAL-7 Assessment Tool: JAMAL-7 Assessment 70692 ([id number]) Assessment & Plan Assessment & Plan (1) Annual physical exam: Code(s): Z00.00 - Encounter for general adult medical examination without abnormal findings Category: Medical Plan: As per HPI (2) Class 2 obesity: Code(s): E66.812 - Obesity, class 2 Category: Medical Plan: Has lost a small amount of weight since last office visit. Patient does understand his BMI is over 35. Has been going to the gym several times a week and has adapted to better eating habits though has failed to lose much weight. (3) HTN (hypertension): Code(s): I10 - Essential (primary) hypertension Category: Medical Qualifiers: Hypertension type: primary hypertension Qualified Code(s): I10 - Essential (primary) hypertension Plan: Patient's blood pressure acceptable today in office. Will continue him on his current dose of antihypertensive medication with goal blood pressure to be below 140/90 Orders: Orders Comprehensive [facility]. Panel Fast Today I10 - Essential (primary) hypertension Complete Blood Count no Diff Today I10 - Essential (primary) hypertension Microalbumin, Random (w Creat) Today I10 - Essential (primary) hypertension IRON PROFILE Today D50.9 - Iron deficiency anemia, unspecified Testosterone, Free/Total Today E66.812 - Obesity, class 2 Medications: Refilled losartan-hydrochlorothiazide 50-12.5 mg 1 tab PO DAILY 90 tabs 1RF 90 days I10 - Essential (primary) hypertension
== END 2025-06-15 15:04 | disposition home or self-care (01) ==
LOC: HO.HMCH 14:26
PROVIDERS: PCP Physician Assistant; Visit Provider Physician Assistant
DX: Z00.00 Encounter for general adult medical examination without abnormal findings (principal); E66.812 Obesity, class 2; Z68.37 Body mass index [BMI] 37.0-37.9, adult; I10 Essential (primary) hypertension

== ENCOUNTER → 2025-06-15 14:25 | Outpatient (BNVA) | payer OTHER, SELFPAY | PROVIDERS: PCP Physician Assistant; Visit Provider Physician Assistant | DX: Z00.00 Encounter for general adult medical examination without abnormal findings (principal); E66.812 Obesity, class 2; I10 Essential (primary) hypertension; D50.9 Iron deficiency anemia, unspecified; Z68.37 Body mass index [BMI] 37.0-37.9, adult | CPT/HCPCS: 96127 ==